=== PATIENT | male | born 1995 | race Asian ===

== ENCOUNTER 2017-01-02 14:39 | Emergency (ER) | payer OTHER ==
[2017-01-02 15:32] VITALS: BP 119/64
[2017-01-02] MEDS ORDERED: Lidocaine 2% VISCOUS* 15 ML UDC PO ONE ×2 (16:57→17:17)
--- NOTE | 2017-01-02 17:24 | ED ---
Rafael Fermin Angela, scribed for Ziggy Tam MD on 01/02/17 at 1626 . Throat Pain/Nasal Congestion - HPI Summary HPI Summary: This pt is a 21 y/[facility]/o foreign body sensation in his throat. Pt reports he was eating sushi today at 13:45 when he swallowed a fishbone. Pt notes he still has a "piercing feeling when swallowing." He denies any blood. No retching. Pt has tried eating bread with peanut butter, drinking vinegar with no relief. He states having trouble swallowing a piece of bread today. - History of Current Complaint Chief Complaint: EDForeignBodyEsophag Time Seen by Provider: 01/02/17 16:17 Hx Obtained From: Patient Onset/Duration: Lasting Hours, Still Present Severity: Moderate Associated Signs And Symptoms: Positive: FB Sensation - in his throat. Negative : Dysphagia, Drooling, Wheezing, Hoarseness, Sinus Discomfort, Nasal Discharge Cough: None PMH/Surg Hx/FS Hx/Imm Hx Endocrine/Hematology History: Denies: Hx Diabetes Cardiovascular History: Denies: Hx Hypertension Infectious Disease History: No Infectious Disease History: Denies: Traveled Outside the [place] in Last 30 Days - Family History Known Family History: Negative: Hypertension, Diabetes - Social History Alcohol Use: Daily Hx Substance Use: No Substance Use Type: Reports: None Smoking Status (MU): Never Smoked Tobacco Review of Systems Negative: Fever, Chills ENT: Other - FB sensation in throat, painful when swallowing Negative: Other - bloody secretions, retching Negative: Chest Pain Negative: Shortness Of Breath All Other Systems Reviewed And Are Negative: Yes Physical Exam Triage Information Reviewed: Yes Vital Signs On Initial Exam: Initial Vitals Temp Pulse Resp BP Pulse Ox 98.5 F 59 16 119/64 100 01/02/17 15:30 01/02/17 15:30 01/02/17 15:30 01/02/17 15:30 01/02/17 15:30 Vital Signs Reviewed: Yes Appearance: Positive: Well-Appearing, No Pain Distress, Well-Nourished Skin: Positive: Warm, Skin Color Reflects Adequate Perfusion, Dry Head/Face: Positive: Normal Head/Face Inspection Eyes: Positive: Normal ENT: Positive: Normal ENT inspection, Hearing grossly normal, Other - No drooling, no change of voice. Negative: Trismus, Muffled voice, Hoarse voice Respiratory/Lung Sounds: Positive: Clear to Auscultation, Breath Sounds Present , Other - Airway not obstructed. No respiratory distress. Cardiovascular: Positive: Normal, RRR Musculoskeletal: Positive: Normal, Strength/ROM Intact Neurological: Positive: Normal, Sensory/Motor Intact, Alert, Oriented to Person Place, Time Psychiatric: Positive: Normal Diagnostics - Vital Signs Vital Signs Temp Pulse Resp BP Pulse Ox 01/02/17 15:30 98.5 F 59 16 119/64 100 - Laboratory Lab Statement: Any lab studies that have been ordered have been reviewed, and results considered in the medical decision making process. Re-Evaluation - Re-Evaluation First Eval Re-Evaluation Time: 17:15 Comment: I discussed the discharge instruction and the need to follow up with Dr. Demarco tomorrow morning. EENT Course/Dx - Course Assessment/Plan: Pt is a 21 y/o male who presents with foreign body sensation in his throat. Pt reports he was eating sushi today at 13:45 when he swallowed a fishbone. Pt notes he still has a "piercing feeling when swallowing." On physical exam, there is no respiratory distress, no drooling, no trismus, no change of voice. I discussed the case with Dr. Demarco, who will see the pt tomorrow at 08:30 AM. - Diagnoses Provider Diagnoses: Possible foreign body in the pharynx - Provider Notifications Discussed Care Of Patient With: Rogelio Demarco Time Discussed With Above Provider: 16:52 Instructed by Provider To: Other - I discussed the case with Dr. Demarco, from ENT. He will see the pt in his office as outpatient at 08:30 tomorrow. Discharge - Discharge Plan Condition: Stable Disposition: HOME Referrals: [facility] - Galileo RUIZ [Primary Care Provider] - Rogelio Demarco MD [Medical Doctor] - The documentation as recorded by the Rafael alarcon Angela accurately reflects the service I personally performed and the decisions made by me, Ziggy Tam MD.
== END 2017-01-02 17:41 | disposition home or self-care (01) ==
LOC: ED 14:39
DX: R09.89 Other specified symptoms and signs involving the circulatory and respiratory systems (principal)
CPT/HCPCS: 99282